=== PATIENT | male | born 1975 | race Two or more races ===

== ENCOUNTER 2016-11-29 21:25 | Observation (INO) | payer SELFPAY ==
[2016-11-29 21:57] LABS: AUTOMATED BASOPHIL 0.9 % (0-2); AUTOMATED EOSINOPHIL 0.9 % (0-5); AUTOMATED NEUTROPHIL 45.2 % (45-76); MPV 7.9 fL (7.4-10.4)
[2016-11-29 22:02] LABS: BLOOD UREA NITROGEN 8 MG/DL (9-20); CALCIUM 9.1 MG/DL (8.4-10.2); CALCULATED OSMOLALITY 287 MOs/Kg (270-290); CHLORIDE 104 mEq/L (98-107); GLUCOSE 149 MG/DL (70-99); SODIUM LEVEL 149 mEq/L (137-146); TOTAL PROTEIN 8.6 G/DL (6.3-8.2)
[2016-11-29 22:03] LABS: PARTIAL THROMB. TIME 24.3 SEC (22-35); PT-INR 1.1
[2016-11-29] MEDS ORDERED: KETOROLAC TROMETH 30 MG/ML VIAL IV ONE (22:56)
[2016-11-29] MEDS ORDERED: ASPIRIN (CHEWABLE) 81 MG TAB PO ONE (22:56)
--- NOTE | 2016-11-29 22:58 | EDPRACDOC ---
- General Information Chief Complaint: Chest Pain Stated Complaint: CHEST PAIN/FAST HEART RATE Time Seen by Provider: 11/29/16 22:32 Information Source: Patient, [employer] Mode of Arrival: Car - History of Present Illness Onset: several days HPI: 6 mos Chest Pain Location: Reports: Left Chest Pain Radiation: Reports: Arm (L) Symptoms Occur: Reports: With heavy exertion, Other (constant) Cardiac Risk Factors: Reports: Hyperlipidemia, Hypertension Cardiac History of: Reports: None. Denies: Cardiac Cath, Stress Test, Stent PE Risk Factors: Denies: Recent Trauma/Surgery, Estrogen Use Prehospital Care: Reports: None Pain Came On: Reports: Gradually Pain Status: Present Now Pain Description: Reports: Sharp, Heavy, Burning, Aching, Tightness Pain Severity: Severe Pain Worsens With: Reports: Exertion, Other (the us of a machine at work that causes his trunk to vibrate) Pain Improves With: Reports: Rest Associated Signs and Symptoms: Reports: SOB, Diaphoretic, Nausea ED Past Medical History - History Reviewed Yes Nurses notes reviewed and agree except as marked - Patient Medical History Cardiac History: Reports: Hypertension, Hypercholesterolemia EDM Review of Systems - Review of Systems ROS Negative Except as Marked: Yes All systems reviewed and were negative except as marked - Physical Exam Constitutional: Alert (Awake), No apparent distress Oriented to: Time, Person, Place Last recorded Vital Signs: Last Vital Signs Temp 98.4 F 11/29/16 21:28 Pulse 85 11/29/16 21:28 Resp 20 11/29/16 21:28 BP 169/103 H 11/29/16 21:28 Pulse Ox 95 11/29/16 21:28 Oxygen Pulse Oxygen Saturation 95 O2 Device Room Air Oxygen Flow Rate Fraction of Inspired Oxygen ( FIO2) - HEENT Head: Normal ( normocephalic) Eye Exam: Normal (PERRL, EOMI, Sclera white) Oropharynx: Normal (Pharynx:Moist without exudate,Gums-no swelling) Tympanic Membrane: Normal ENT EAC: Normal TMJ: Normal Nose: No Symptoms Reported (septum midline) Neck: Normal (FROM, trachea at midline) - Respiratory/Cardiovascular Respiratory: Normal - CTA (BBS clear to auscultation without adventitious sounds ), Other (chest wall tenderness) Cardiovascular: Normal (RRR without murmur, gallop or rub) - GI Auscultation: Normal (NABS) Palpation: Normal (Soft,No rebound or guarding, non distended) Tenderness: Non tender Moreno's Sign: Negative - Musculoskeletal Back: Normal (Non-Tender) Extremities: Normal (Normal tone, Pulses 2+ No cyanosis or edema, FROM) - Integumentary Skin: Normal, Warm, Dry Lymphatics: Normal (no adenopathy) - Neurologic Memory Impaired: Normal Motor Function: Normal (Normal tone, Pulses 2+ No cyanosis or edema, FROM) Cranial Nerve: Normal (CN II-X11 intact sensation, strength 5/5) Cerebellar: Normal Mood Description: Normal Perception: Normal ED Chest Pain Exam - Respiratory/Cardiovascular Respiratory: Normal - CTA Chest Palpation: Tender, Reproduces Pain - Action Patient received Aspirin within last 24 hours?: No ASA given in the ED: Yes Beta Joanna held due to: Other-specify below* (d/t chest wall tenderness, alternative dx) - Re-evaluation Re-evaluation 1 Re-evaluation Time: 01:30 (improved, 07/07. pt experienced transient desat to 89- 90% with ambulation) - Results 11/29/16 21:38 11/29/16 21:38 WBC 7.5 xk/uL (3.8-10.8) 11/29/16 21:38 RBC 4.88 xM/uL (4.70-6.10) 11/29/16 21:38 Hgb 15.6 g/dL (14.0-18.0) 11/29/16 21:38 Hct 44.9 % (42-52) 11/29/16 21:38 MCV 92 fL (80-94) 11/29/16 21:38 MCH 31.9 pg (27-32) 11/29/16 21:38 MCHC 34.7 g/dl (33-36) 11/29/16 21:38 RDW 12.8 % (11.5-14.5) 11/29/16 21:38 Plt Count 359 xk/uL (130-400) 11/29/16 21:38 MPV 7.9 fL (7.4-10.4) 11/29/16 21:38 Neut % (Auto) 45.2 % (45-76) 11/29/16 21:38 Lymph % (Auto) 47.0 % (17-44) H 11/29/16 21:38 [place] % (Auto) 6.0 % (3-10) 11/29/16 21:38 Eos % (Auto) 0.9 % (0-5) 11/29/16 21:38 Baso % (Auto) 0.9 % (0-2) 11/29/16 21:38 Absolute Neuts (auto) 3.38 xk/uL (1.7-8.2) 11/29/16 21:38 Absolute Lymphs (auto) 3.53 xk/uL (0.65-4.75) 11/29/16 21:38 PT 11.3 SEC (9.2-11.2) H 11/29/16 21:38 INR 1.1 11/29/16 21:38 APTT 24.3 SEC (22-35) 11/29/16 21:38 Sodium 149 mEq/L (137-146) H 11/29/16 21:38 Potassium 3.7 mEq/L (3.5-5.1) 11/29/16 21:38 Chloride 104 mEq/L (98-107) 11/29/16 21:38 Carbon Dioxide 25 mMOL/L (22-33) 11/29/16 21:38 Anion Gap 24 mEq/L (8-16) H 11/29/16 21:38 BUN 8 MG/DL (9-20) L 11/29/16 21:38 Creatinine 0.70 MG/DL (0.66-1.25) 11/29/16 21:38 Estimated GFR (MDRD) > 60 mL/min (>=60) 11/29/16 21:38 Glucose 149 MG/DL (70-99) H 11/29/16 21:38 Calculated Osmolality 287 MOs/Kg (270-290) 11/29/16 21:38 Calcium 9.1 MG/DL (8.4-10.2) 11/29/16 21:38 Total Bilirubin 0.6 MG/DL (0.2-1.3) 11/29/16 21:38 AST 40 IU/L (17-59) 11/29/16 21:38 ALT 41 IU/L (21-72) 11/29/16 21:38 Alkaline Phosphatase 94 IU/L (38-126) 11/29/16 21:38 Troponin I < 0.01 ng/mL (<.04) 11/29/16 21:38 Dtv-N-Qicqkmfboyg Pept 22 pg/mL (0-450) 11/29/16 21:38 Total Protein 8.6 G/DL (6.3-8.2) H 11/29/16 21:38 Albumin 4.6 G/DL (3.5-5.0) 11/29/16 21:38 Lab Results 11/29/16 11/29/16 11/29/16 21:38 21:38 21:38 WBC 7.5 RBC 4.88 Hgb 15.6 Hct 44.9 MCV 92 MCH 31.9 MCHC 34.7 RDW 12.8 Plt Count 359 MPV 7.9 Neut % (Auto) 45.2 Lymph % (Auto) 47.0 H [place] % (Auto) 6.0 Eos % (Auto) 0.9 Baso % (Auto) 0.9 Absolute Neuts (auto) 3.38 Absolute Lymphs (auto) 3.53 PT 11.3 H INR 1.1 APTT 24.3 Sodium 149 H Potassium 3.7 Chloride 104 Carbon Dioxide 25 Anion Gap 24 H BUN 8 L Creatinine 0.70 Estimated GFR (MDRD) > 60 Glucose 149 H Calculated Osmolality 287 Calcium 9.1 Total Bilirubin 0.6 AST 40 ALT 41 Alkaline Phosphatase 94 Troponin I < 0.01 Amm-Z-Owfsmnnoifm Pept 22 Total Protein 8.6 H Albumin 4.6 Laboratory Results - last 24 hr 11/29/16 11/29/16 11/29/16 21:38 21:38 21:38 WBC 7.5 RBC 4.88 Hgb 15.6 Hct 44.9 MCV 92 MCH 31.9 MCHC 34.7 RDW 12.8 Plt Count 359 MPV 7.9 Neut % (Auto) 45.2 Lymph % (Auto) 47.0 H [place] % (Auto) 6.0 Eos % (Auto) 0.9 Baso % (Auto) 0.9 Absolute Neuts (auto) 3.38 Absolute Lymphs (auto) 3.53 PT 11.3 H INR 1.1 APTT 24.3 Sodium 149 H Potassium 3.7 Chloride 104 Carbon Dioxide 25 Anion Gap 24 H BUN 8 L Creatinine 0.70 Estimated GFR (MDRD) > 60 Glucose 149 H Calculated Osmolality 287 Calcium 9.1 Total Bilirubin 0.6 AST 40 ALT 41 Alkaline Phosphatase 94 Troponin I < 0.01 Ylk-Y-Zlrcongokiv Pept 22 Total Protein 8.6 H Albumin 4.6 Laboratory Results 11/29/16 21:38 11/29/16 21:38 - EKG EKG #1 EKG Time: 21:32 -: Yes EKG interpreted by me [place]: Normal Rhythm: NSR Block: None Hypertrophy: None ST: Normal Comments: t wave inversion, aVl - Diagnostic Imaging Chest Image interpreted by: Radiologist (neg) Decision Time to Discharge: 02:43 - Departure Yes I personally saw and evaluated the patient. Disposition: Admit IP To This Hospital Condition: Stable Final Diagnosis: Chest pain Qualifiers: Chest pain type: unspecified Qualified Code(s): R07.9 - Chest pain, unspecified Instructions: Chest Pain (ED), Chest Wall Pain Education/Counseling Given To: Patient, Family Member Decision to Admit Time: 02:44 Decision to admit date: 11/30/16 Decision to admit: from ED - Physician Consulted Hospitalist Time Called: 02:44 (dr rivero)
--- NOTE | 2016-11-29 23:57 | DIRPT ---
CLINICAL DATA: Chest pain that comes and goes for several months. The last 3 days has been more persistent. Pain in the left upper chest radiates into left arm. Hypertension, hypercholesterolemia. EXAM: PORTABLE CHEST 1 VIEW COMPARISON: None. FINDINGS: The heart size and mediastinal contours are within normal limits. Both lungs are clear. The visualized skeletal structures are unremarkable. IMPRESSION: No active disease. Electronically Signed By: Maryam Morales M.D. On: 11/29/2016 23:55
[2016-11-30] MEDS ORDERED: ONDANSETRON HCL 4 MG/2 ML VIAL IV PRN (02:45)
[2016-11-30] MEDS ORDERED: ACETAMINOPHEN 325 MG/TAB TABLET PO PRN (02:45)
[2016-11-30] MEDS ORDERED: NITROGLYCERINE 0.4 MG TAB SL PRN (02:45)
[2016-11-30] MEDS ORDERED: MORPHINE 2 MG/ML INJECTION IV PRN (02:45)
[2016-11-30] MEDS ORDERED: Pharmacy Order Set Alert SCH (03:00)
--- NOTE | 2016-11-30 03:20 | HISTPHYS ---
- Chief Complaint Chest pain - History of Present Illness Occitan-speaking healthy 41-year-old male who [facility] to [facility] pain and hypoxia. Patient is resting comfortably , speaks some Czech and tells me that he has been having chest pain for about the last 6 months. Also tells me that he developed a cough in the last 24-48 hours, and feels like he was having subjective fevers at home. Tells me that his chest pain is substernal and radiates up into his neck and down his left arm. Says he has been having some nausea home, but no vomiting. Denies any trauma. - Medical History Cardiac History: Reports: Hypertension, Hypercholesterolemia - Medictions/Allergies Allergies No Known Allergies Allergy (Verified 11/30/16 03:01) - Social History Smoking Status: Never smoker - Review of Systems Yes All systems reviewed and were negative except as marked - Physical Exam Vital Signs: Initial Vitals Temperature 98.4 F 11/29/16 21:28 Pulse Rate 85 11/29/16 21:28 Respiratory Rate 20 11/29/16 21:28 Blood Pressure 169/103 H 11/29/16 21:28 Pulse Oxygen Saturation 95 11/29/16 21:28 Constitutional: Alert (Awake, Fully oriented, well appearing. No apparent distress) Oriented to: Time, Person, Place Exam: Resting comfortably in a stretcher in the emergency department. - HEENT Head: Normal (normocephalic,atraumatic, trachea midline) Eye: Normal (EOMI, Sclera white) Oropharynx: Normal (moist) Nose: No Symptoms Reported (without discharge or bleeding) Respiratory: Normal - CTA (Clear to auscultation bilaterally, no wheezing,rales or rhonchi. No use of accessory muscles) Cardiovascular: Normal (RRR, no murmurs, rubs or gallops) - GI Palpation: Normal (soft, non distended and nontender) - Musculoskeletal Extremities: Normal (normal tone, no cyanosis or edema) Has some tenderness to palpation in the left calf. Otherwise normal musculoskeletal examination without any edema. - Integumentary Skin: Normal (no rashes or lesions) - Neurologic Cranial Nerve: Normal (CN II-XII intact) Mood Description: Normal (Fully oriented and appropiate affect) - Focused CV Perfusion Exam Vital Signs: Last Vital Signs Temp 98.4 F 11/29/16 21:28 Pulse 88 11/30/16 03:02 Resp 20 11/30/16 03:02 BP 120/68 11/30/16 03:02 Pulse Ox 95 11/30/16 03:02 - Lab Results Laboratory Tests 11/29/16 11/29/16 11/29/16 21:38 21:38 21:38 WBC 7.5 Hgb 15.6 INR 1.1 Sodium 149 H Potassium 3.7 Chloride 104 Anion Gap 24 H BUN 8 L Creatinine 0.70 Glucose 149 H Troponin I < 0.01 Plasma/Serum Ethyl Alc 11/29/16 21:38 WBC Hgb INR Sodium Potassium Chloride Anion Gap BUN Creatinine Glucose Troponin I Plasma/Serum Ethyl Alc 0.38 H - Diagnostic Findings Chest x-ray unremarkable, without any acute abnormality. - Assessment (1) Chest pain R07.9 - CHEST PAIN, UNSPECIFIED Acute Qualifiers: Chest pain type: unspecified Qualified Code(s): R07.9 - Chest pain, unspecified Unclear etiology. Differential includes myocardial ischemia, pulmonary embolism , acid reflux, musculoskeletal injury or other. The 6 month long duration makes an acute coronary event very unlikely. He is being admitted to the hospital due to his risk factors including hypertension, hyperlipidemia and he will be ruled out for myocardial infarction. Two troponins are negative, if the 30s negative he will have stress testing later this morning. Evidence based care chest pain order set has been utilized. Started on low-dose beta- brice as tolerated, as well as daily aspirin and statin. (2) HLD (hyperlipidemia) E78.5 - HYPERLIPIDEMIA, UNSPECIFIED Acute (3) HTN (hypertension) I10 - ESSENTIAL (PRIMARY) HYPERTENSION Acute (4) Hypoxia R09.02 - HYPOXEMIA Acute Unclear etiology. However, in the setting of tachycardia, hypoxia I am checking a stat D-dimer at this time. If it is elevated, he will require stat CT of the chest with angiography to rule out pulmonary embolism. Case Care Discussed with: Patient, Nursing Staff Total Time: 35
[2016-11-30 03:51] VITALS: BMI 28.3
[2016-11-30] MEDS ORDERED: Vaccine Screening Complete SCH (07:00)
[2016-11-30] MEDS ORDERED: ASPIRIN 325 MG TAB PO SCH (08:00)
[2016-11-30] MEDS ORDERED: CARVEDILOL 6.25 MG TAB PO SCH (09:00)
[2016-11-30] MEDS ORDERED: SODIUM CHLORIDE 0.9% 10 ML FLUSH FLUSH ONE (09:00)
[2016-11-30] MEDS ORDERED: REGADENOSON 0.4 MG/5 ML SYRINGE IV ONE (09:00)
[2016-11-30] MEDS ORDERED: SESTAMIBI 8 MCI V IV ONE (10:34)
[2016-11-30 11:41] VITALS: BP 125/78; TEMP 99
--- NOTE | 2016-11-30 12:16 | PCM.STRESS ---
TREADMILL MYOCARDIAL PERFUSION STRESS TEST DATE OF PROCEDURE: 11/30/16 INDICATION: Chest pain-IN ruled out RESTING DATA: HR 71 B/P 130/100 Chest clear Cor: Regular rhythm, no murmur or gallop RESTING EKG: [NSR] normal tracing PROTOCOL: Approx 8 mCi of technetium-99m pyrophosphate (Cardiolyte) was injected intravenously and tomograhic imaging performed at rest. An hour later, the patient performed treadmilll exericse on a Tej protocol to a level of 11.6 METS, achieveing a peak heart rate of 160 per minute, 88 percent of predicted maximum. BP jason normally to 196/100. At peak exercise, an additional 25 mCi of Cardiolyte was injected and tomographic imaging repeated. Test stopped because of fatigue and target heart rate achieved. No chest pain. STRESS EKG: Rhythm: Sinus. ST-T changes: None MYOCARDIAL PERFUSION IMAGING: Rotational display of raw projection data documents [stable pt position during imaging]. [There is a high right hemidiaphragm and prominent hepatic uptake]. There is homogeneous radiotracer uptake throughout on both rest and stress images. Gated imaging reveals normal wall thickening in all segments with a normal end systolic volume of 39 mL and an ejection fraction of 58% IMPRESSION: (1) Functional capacity is good. 11.6 METS (2) Normal resting left ventricular size and function, with end-systolic volume of 39 ml and ejection fraction of 58 %. (3) normal perfusion scans-rest and stress - no clinical or scintigraphic ischemia Negative Treadmill perfusion stress test for ischemia.
--- NOTE | 2016-11-30 12:33 | PCM.DCS92 ---
- Final/Secondary Discharge Diagnosis (1) Chest pain Resolved R07.9 - CHEST PAIN, UNSPECIFIED unspecified R07.9 - Chest pain, unspecified Comment: Unclear etiology. Differential includes myocardial ischemia, pulmonary embolism, acid reflux, musculoskeletal injury or other. The 6 month long duration makes an acute coronary event very unlikely. He is being admitted to the hospital due to his risk factors including hypertension, hyperlipidemia and he will be ruled out for myocardial infarction. Two troponins are negative, if the 30s negative he will have stress testing later this morning. Evidence based care chest pain order set has been utilized. Started on low-dose beta-brice as tolerated, as well as daily aspirin and statin. (2) HLD (hyperlipidemia) Chronic E78.5 - HYPERLIPIDEMIA, UNSPECIFIED Present on Admission: Yes unspecified E78.5 - Hyperlipidemia, unspecified (3) HTN (hypertension) Chronic I10 - ESSENTIAL (PRIMARY) HYPERTENSION Present on Admission: Yes (4) Hypoxia Acute R09.02 - HYPOXEMIA Comment: Unclear etiology. However, in the setting of tachycardia, hypoxia I am checking a stat D-dimer at this time. If it is elevated, he will require stat CT of the chest with angiography to rule out pulmonary embolism. Discharge Disposition: Home Discharge Condition: Improved Cognitive Discharge Status: Unimpaired Fuctional Discharge Status: Independent Physician Follow up/Referrals: None,No Provider [Family Provider] - One Week O2 Device: Room Air Additional Instructions: pt needs f/u appt with collection specialist MD to check bp in 1 - 2 weeks Diet at Discharge: As Tolerated Activity: No Restrictions, As Tolerated Call Office For: Worsening Symptoms, Fever over 100.5, Pain Uncontrolled By Meds - DC Summary Notes Hospital Course Note:: Discharge summary on patient named MANDI MCLEAN admitted to [facility] on 11/30/16 by Noble Mosquera MD. Date of discharge is []. The patient was admitted under observation and serial cardiac enzymes and EKGs were obtained. The patient ruled out for myocardial infarction by serial enzymes and EKGs. The patient then underwent a stress test. The stress test showed no evidence of reversible ischemia. The patient is stable for discharge home. Total Time: 45 min - Physical Exam Vital Signs: Last Vital Signs Temp 99 F 11/30/16 11:40 Pulse 88 11/30/16 11:48 Resp 18 11/30/16 11:40 BP 125/78 11/30/16 11:40 Pulse Ox 93 11/30/16 08:00 Oxygen Pulse Oxygen Saturation 93 O2 Device Room Air Oxygen Flow Rate 1 Fraction of Inspired Oxygen ( 100 FIO2) Constitutional: Alert (Awake, Fully oriented, well appearing. No apparent distress) Oriented to: Time, Person, Place - HEENT Head: Normal (normocephalic,atraumatic, trachea midline) Eye: Normal (EOMI, Sclera white) Oropharynx: Normal (moist) Nose: No Symptoms Reported (without discharge or bleeding) - Respiratory/Cardiovascular Respiratory: Normal - CTA (Clear to auscultation bilaterally, no wheezing,rales or rhonchi. No use of accessory muscles) Cardiovascular: Normal (RRR, no murmurs, rubs or gallops) - GI Palpation: Normal (soft, non distended and nontender) - Musculoskeletal Extremities: Normal (normal tone, no cyanosis or edema) - Integumentary Skin: Normal (no rashes or lesions) - Neurologic Mood Description: Normal (Fully oriented and appropiate affect) - Other Exam Other Exam Findings: TREADMILL MYOCARDIAL PERFUSION STRESS TEST DATE OF PROCEDURE: 11/30/16 INDICATION: Chest pain-KS ruled out RESTING DATA: HR 71 B/P 130/100 Chest clear Cor: Regular rhythm, no murmur or gallop RESTING EKG: [NSR] normal tracing PROTOCOL: Approx 8 mCi of technetium-99m pyrophosphate (Cardiolyte) was injected intravenously and tomograhic imaging performed at rest. An hour later, the patient performed treadmilll exericse on a Tej protocol to a level of 11.6 METS, achieveing a peak heart rate of 160 per minute, 88 percent of predicted maximum. BP jason normally to 196/100. At peak exercise, an additional 25 mCi of Cardiolyte was injected and tomographic imaging repeated. Test stopped because of fatigue and target heart rate achieved. No chest pain. STRESS EKG: Rhythm: Sinus. ST-T changes: None MYOCARDIAL PERFUSION IMAGING: Rotational display of raw projection data documents [stable pt position during imaging]. [There is a high right hemidiaphragm and prominent hepatic uptake]. There is homogeneous radiotracer uptake throughout on both rest and stress images. Gated imaging reveals normal wall thickening in all segments with a normal end systolic volume of 39 mL and an ejection fraction of 58% IMPRESSION: (1) Functional capacity is good. 11.6 METS (2) Normal resting left ventricular size and function, with end-systolic volume of 39 ml and ejection fraction of 58 %. (3) normal perfusion scans-rest and stress - no clinical or scintigraphic ischemia Negative Treadmill perfusion stress test for ischemia.
[2016-11-30] MEDS ORDERED: FLU VACCINE (Afluria) 0.5 ML DOSE IM ONE (13:00)
[2016-11-30 14:20] VITALS: PULSE 80
--- NOTE | 2016-11-30 16:39 | CAPUEKG ---
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
[2016-12-01] MEDS ORDERED: FLU VACCINE (Afluria) 0.5 ML DOSE IM ONE (08:00)
== END 2016-11-30 14:45 | disposition home or self-care (01) ==
LOC: ED 21:25 → ICU 11-30 02:45
PROVIDERS: ADMIT Internal Medicine; ATTEND Hospitalist
DX: R07.9 Chest pain, unspecified (principal); E78.5 Hyperlipidemia, unspecified; Z23 Encounter for immunization; I10 Essential (primary) hypertension; R09.02 Hypoxemia; R06.02 Shortness of breath
CPT/HCPCS: 36415; 71010; 78452; 80053; 80320; 83880; 84484; 85025; 85379; 85610; 85730; 87641; 90471; 90656; 93005; 93017; 96374; 99285; A9500; G0378; J1885; J3490; A4216; J2785